=== PATIENT | female | born 2000 ===

== ENCOUNTER → 2025-01-27 23:59 | Outpatient (BNV) | payer MEDICAID, SELFPAY ==
--- NOTE | 2025-01-28 10:51 | MHC.OFFVIS ---
Vital Signs 01/28/25 11:05 BP 140/82 H Pulse 57 Pulse Source Pulse Oximeter Pulse Oximetry (%) 97 Intake Visit Reasons: follow up Allergies No Known Allergies Allergy (Verified 01/28/25 11:09) HPI Comments Details: student here she has HTN and takes lisinopril 5 mg every day and this controls it but she is worried that her bp is high at the moment and would betzy it checked . It is wnl. we continued with her orientation. PMH: had appt w/ [facility] but no prescritpin for HTN was given so she went to urgent care in [place] and got 2 months of rx. she is trying to get appt but no one calls her back HTN, High chol and wants B/c - she used to have a bp cuff but her daughter broke it.she paid for this on her own - insurance wouldn't cover it she would like to go back on depo. she has a partner w/ infrequent sex - and he doesn't want her gettting so uses condoms. student states that she has not had sex since her last period was approx 2 weeks ago. no sex in months bc partner is too busy. they have a nice relationship she is losing weight intentionaly - was 180 after baby was born and is not 152# she was 138 before baby was born. baby is 3 years old and healthy girl social- she is in relationshhip w/ 30 year old but states that he is a good partner htey have been together for about 3 years (since her duaghter was 3 months old) the baby's father is not in the picture - he is schizophrenic(not violent but not a partner/father). mood: good always happy positive person even if things go wrong. PLAN 1) discussed w/ Marcella Saleem getting her restarted on depo. I will put in order for depo and blood work 2)bring bp cuff from home 3)she will make appt to get follow up w/ PCP on bp COUNTS INCLUDE [facility] BEDS AT [facility] Medical History (Updated 01/28/25 @ 11:12 by NIMESH Elias) Bilateral headaches History of high cholesterol Hypertension Family History (Updated 01/28/25 @ 11:00 by NIMESH Elias) Mother HTN (hypertension) Sister No problems noted. Sister No problems noted. Sister No problems noted. Brother No problems noted. Brother No problems noted. Brother No problems noted. Daughter No problems noted. Review of Systems Const Details: Counseling visit: All systems reviewed & are unremarkable except as noted in HPI and below Reports as per HPI Resp Reports as per HPI GI Reports as per HPI Musc Reports as per HPI Neuro Reports as per [facility] Psych Reports as per HPI Physical Exam Const General: cooperative, healthy appearing and no acute distress Nutritional Appearance: well nourished Orientation/consciousness: oriented to person Limitations: no limitations HEENT Other: wnl Eyes Other: wnl Chest Other: easy breathing Resp Effort & Inspection: able to speak in complete sentences Skin Other: normal in appearance Neuro General: oriented to person Psych Other: see HPI Mental Status: mental status grossly normal Speech and movement: Clear speech present Attitude: cooperative Thought process: Normal thought process present Assessment & Plan Assessment & Plan (1) Hypertension: Code(s): I10 - Essential (primary) hypertension Category: Medical (2) Irregular menses: Code(s): N92.6 - Irregular menstruation, unspecified Category: Medical (3) control counseling: Code(s): Z30.09 - Encounter for other general counseling and advice on contraception Category: Medical (4) Bilateral headaches: Code(s): R51.9 - Headache, unspecified Category: Medical (5) Counseling and coordination of care: Code(s): Z71.89 - Other specified counseling Category: Medical Plan extensive counseling and coordination of care- she reports low mood issues and 'happy' but is more difficult in the community than this might indicate - monitoring and supporting this vulnerable student. 1)bp - donation of cuff and support her in making appt w PCP 2)appt for depo and blood work done to confirm hcg negative 3)2 ibuprofen given for headache now - disussed and teaching done re: HTN and headaches Orders: Orders HCG Quantitative Today N92.6 - Irregular menstruation, unspecified Medications: New medroxyprogesterone (Depo-Provera) 150 mg IM [id number] 1 mL 0RF Coding Level of Care Code New Pt Level 5 (12144) Diagnoses Hypertension I10 Irregular menses N92.6 control counseling Z30.09 Bilateral headaches R51.9 Counseling and coordination of care Z71.89 Additional Codes PHQ-9 - 29897 - PHQ-9 Billing: Yes ([id number]) CRAFFT Assessment Charge - Crafft: CRAFFT [id number] ([id number]) Time Spent (min) 60 Comment extensive counseling and coordination of care PHQ-9 Over the last 2 weeks, how often have you been bothered by any of the following problems? 1. Little interest or pleasure in doing things: several days 2. Feeling down, depressed, or hopeless: not at all 3. Trouble falling or staying asleep, or sleeping too much: several days 4. Feeling tired or having little energy: several days 5. Poor appetite or overeating: not at all 6. Feeling bad about yourself - or that you are a failure or have let yourself or your family down: not at all 7. Trouble concentrating on things, such as reading the newspaper or watching television: several days 8. Moving or speaking so slowly that other people could have noticed. Or the opposite - being so fidgety or restless that you have been moving around a lot more than usual: more than half the days 9. Thoughts that you would be better off or of hurting yourself in some way: not at all Total score: 6 Depression Screening Interpretation: Negative Depression Screening Done: Yes 68151 - PHQ-9 Billing: Yes Source: Developed by Drs. Rizwan Trotter, Marcelina Musa, Kavon Bain and colleagues, with an educational victor manuel from [employer]. CRAFFT Screening Tool PART A: In the PAST 12 MONTHS, did you: Drink any alcohol (more than few sips)? (Do not count sips of alcohol taken during family or druze events.): No Smoke any marijuana or hashish?: No Use anything else to get high? (includes illegal drugs, over the counter/prescription drugs, or things that you sniff/douglass?): No CRAFFT Assessment Charge Crafft: CRAFFT [id number]
[2025-01-28 11:05] VITALS: BP 140/82; PULSE 57; O2SAT 97
== END ==
PROVIDERS: PCP Nurse Practitioner Family; Visit Provider Nurse Practitioner Family
DX: I10 Essential (primary) hypertension (principal); N92.6 Irregular menstruation, unspecified; Z30.09 Encounter for other general counseling and advice on contraception; R51.9 Headache, unspecified; Z71.89 Other specified counseling
CPT/HCPCS: 96127; 96160; 99205

== ENCOUNTER → 2025-03-08 10:10 | Outpatient (BNV) | payer MEDICAID, SELFPAY ==
--- NOTE | 2025-03-08 10:10 | MHC.OFFVIS ---
Vital Signs 03/08/25 10:56 BP 118/60 Intake Visit Reasons: Amb Documentation Allergies No Known Allergies Allergy (Verified 01/28/25 11:09) HPI Comments Details: student coming for control. she never picked up depo - and she was absent from school. she is on her period 03/03/2025 it is normal. she hasn't had sex in 2 months. her partner is in [employer] so won't be home until march. She is confidently not at risk for . Plan is that she and counselor will merchandise pickup/receiving associate rx and it will be given either today or tomorrow. she returned - depo was given w/ counseling - hcg-. left deltoid 5103 04/2027 note writtten that this was given and due date (may) - she took a picutre for her phone canceled bhcg as it is no longer needed she is no her menses and hasnt had sex in 2 months - urine hcg negative [facility] Medical History (Updated 03/08/25 @ 10:56 by NIMESH Elias) Family planning, Depo-Provera contraception monitoring/administration Bilateral headaches History of high cholesterol Hypertension Family History Mother HTN (hypertension) Sister No problems noted. Sister No problems noted. Sister No problems noted. Brother No problems noted. Brother No problems noted. Brother No problems noted. Daughter No problems noted. Review of Systems Const Details: Counseling visit: All systems reviewed & are unremarkable except as noted in HPI and below Reports as per HPI Resp Reports as per HPI GI Reports as per HPI Musc Reports as per HPI Neuro Reports as per HPI Psych Reports as per HPI Physical Exam Const General: cooperative, healthy appearing and no acute distress Nutritional Appearance: well nourished Orientation/consciousness: oriented to person Limitations: no limitations HEENT Other: wnl Eyes Other: wnl Chest Other: easy breathing Resp Effort & Inspection: able to speak in complete sentences Skin Other: normal in appearance Neuro General: oriented to person Psych Other: see HPI Mental Status: mental status grossly normal Speech and movement: Clear speech present Attitude: cooperative Thought process: Normal thought process present Assessment & Plan Assessment & Plan (1) Counseling and coordination of care: Code(s): Z71.89 - Other specified counseling Category: Medical (2) Irregular menses: Code(s): N92.6 - Irregular menstruation, unspecified Category: Medical (3) Family planning, Depo-Provera contraception monitoring/administration: Code(s): Z30.42 - Encounter for surveillance of injectable contraceptive Category: Medical Plan Depo administration either today or tomorrow (if she makes it back in time before clinic closes will give today)...check bp and hcg. I had brought portable BP cuff and she wasn't showing up at school - will bring it back for her. she made it back and depo was given see hpi for details Orders: Orders AMB HCG Urine Test Today N92.6 - Irregular menstruation, unspecified, Z32.02 - Encounter for test, result negative Coding Level of Care Code Est Pt Level 4 (61749) Diagnoses Counseling and coordination of care Z71.89 Irregular menses N92.6 Family planning, Depo-Provera contraception monitoring/administration Z30.42 Time Spent (min) 35 Comment coord care and counseling
[2025-03-08 10:56] VITALS: BP 118/60
== END ==
PROVIDERS: PCP Nurse Practitioner Family; Visit Provider Nurse Practitioner Family
DX: Z71.89 Other specified counseling (principal); N92.6 Irregular menstruation, unspecified; Z30.42 Encounter for surveillance of injectable contraceptive
CPT/HCPCS: 99214